=== PATIENT | female | born 1950 | race Asian ===

== ENCOUNTER 2025-06-16 07:43 | Day surgery (SDC) | payer OTHER ==
[2025-06-16] MEDS ORDERED: NA CHLORIDE 0.9% 1,000 ML ONE (08:15)
[2025-06-16 08:55] LABS: MPV 10.4 fL (7.6-11.3)
[2025-06-16 09:05] LABS: PT Prothrombin Time 12.3 SECONDS (10-13.0); PTT, Activated Partial Thromb 36.8 SECONDS (27.2-37.4); Protime INR 1.09
[2025-06-16] MEDS ORDERED: FLUMAZENIL 0.1 MG/ML (5 mL VIAL) IV ONE (09:41)
[2025-06-16] MEDS ORDERED: FENTANYL CITR 100 MCG/2 ML ONE (09:41)
[2025-06-16] MEDS ORDERED: MIDAZOLAM HCL 2 MG/2 ML INJ ONE (09:41)
[2025-06-16] MEDS ORDERED: NALOXONE HCL 2 MG/2 ML VIAL ONE (09:42)
[2025-06-16] MEDS ORDERED: GLYCOPYRROLATE 0.2 MG/ML SYR ONE (09:43)
[2025-06-16] MEDS ORDERED: HYDRALAZINE HCL 20 MG/ML VIAL ONE (10:43)
[2025-06-16 14:41] VITALS: O2SAT 100; BMI 19.2
[2025-06-16 14:49] VITALS: BP 116/52; TEMP 98.8
--- NOTE | 2025-06-16 17:49 | RAD REPORT ---
Exam: CT renal biopsy CLINICAL HISTORY: Chronic renal disease. Hypertension TECHNIQUE: Risks, benefits and alternatives to the procedure explained to the patient and informed consent obtdorinda heard. Patient was placed prone into the CT suite. 1.25 mg Versed and 75 mcg fentanyl administered intravenously. Conscious sedation performed by yung augustin for approximately 45 minutes. Skin and deeper tissues anesthetized with lidocaine. A 17-gauge needle advanced to the edge of the lo wer pole left kidney. Through this an 18-gauge needle placed and three 2 cm core specimens obtained and given to pathology in attendance. Post biopsy images demonstrate a minimal perirenal hematoma. IMPRESSION: Renal core biopsies
== END 2025-06-16 13:50 | disposition home or self-care (01) ==
LOC: DS 07:43
PROVIDERS: ATTEND Internal Medicine Nephrology
DX: E11.21 Type 2 diabetes mellitus with diabetic nephropathy (principal); N18.9 Chronic kidney disease, unspecified; E11.22 Type 2 diabetes mellitus with diabetic chronic kidney disease; I10 Essential (primary) hypertension; R80.9 Proteinuria, unspecified
CPT/HCPCS: 36415; 85049; 85610; 82947; 88300; 85730; 50200; J0360; J2250; J3010; J7030; 99152; J2310